=== PATIENT | male | born 1975 | race Caucasian/White ===

== ENCOUNTER 2017-12-14 18:37 | Emergency (ER) | payer SELFPAY ==
[~2017-12-14] VITALS: Ht 167.6 cm; Wt 68.0 kg
[2017-12-14] MEDS ORDERED: ACETAMINOPHEN 325MG TABLET PO STA (20:35)
[2017-12-14 22:41] VITALS: BP 141/92
== END 2017-12-14 22:42 | disposition home or self-care (01) ==
LOC: ER 18:37
DX: M25.511 Pain in right shoulder (principal); M25.552 Pain in left hip; R07.89 Other chest pain; V79.88XA Bus occupant (driver) (passenger) injured in other specified transport accidents, initial encounter; Y93.89 Activity, other specified; Y92.89 Other specified places as the place of occurrence of the external cause; Y99.8 Other external cause status
CPT/HCPCS: 71045; 73030; 73502; 99284